=== PATIENT | female | born 1995 | race Caucasian/White ===

== ENCOUNTER 2019-01-18 15:35 | Emergency (ER) | payer OTHER ==
[~2019-01-18] VITALS: Ht 167.6 cm; Wt 90.7 kg
[~2019-01-18 15:35] MED LIST: AMOXICILLIN 50500 M1 PO; PROMETH-CODEIN 65 ML PO
[2019-01-18] MEDS ORDERED: BUTALB-APAP-CA1 EACH PO (16:50)
[2019-01-18 17:20] VITALS: BP 143/85
== END 2019-01-18 17:20 | disposition home or self-care (01) ==
LOC: M.ERS 15:35
DX: M25.511 Pain in right shoulder (principal); M25.551 Pain in right hip; R51 Headache; M54.2 Cervicalgia; V89.2XXA Person injured in unspecified motor-vehicle accident, traffic, initial encounter; Y92.89 Other specified places as the place of occurrence of the external cause; Y93.89 Activity, other specified; Y99.8 Other external cause status